=== PATIENT | male | born 1965 | race African-American/Black ===

== ENCOUNTER 2017-10-26 13:00 | Inpatient (IN) | payer OTHER ==
[2017-10-26 14:32] VITALS: BMI 31.3
--- NOTE | 2017-10-26 17:33 | HP ---
COWS - Scale Resting Pulse: 0= [place] 80 or Below Sweatin=Flushed/Facial Moisture Restless Observation: 3= Extraneous Movement Pupil Size: 2= Moderately Dilated Bone or Joint Aches: 2= Severe Diffuse Aches Runny Nose/ Eye Tearin= Runny Nose/Eyes GI Upset > 30mins: 3= Vomiting/Diarrhea Tremor Observation: 2= Slight Tremor Visible Yawning Observation: 1= 1-2x During Session Anxiety or Irritability: 2=Irritable/Anxious Goose Flesh Skin: 0=Smooth Skin COWS Score: 19 CIWA Score - CIWA Score Nausea/Vomitin Muscle Tremors: 3 Anxiety: 3 Agitation: 3 Paroxysmal Sweats: 1-Minimal Palms Moist Orientation: 0-Oriented Tacttile Disturbances: 1-Very Mild Itch/Numbness Auditory Disturbances: 1-Very Mild Visual Disturbances: 2-Mild Sensitivity Headache: 2-Mild CIWA-Ar Total Score: 19 Admission ROS BHS - HPI Chief Complaint: i need help to stop using heroin and xanax Allergies/Adverse Reactions: Allergies Allergy/AdvReac Type Severity Reaction Status Date / Time No Known Drug Allergies Allergy Verified 10/26/17 17:57 red sauce Allergy Uncoded 10/26/17 17:35 History of Present Illness: this 52 years old male with heroin and xanax dependence,sseking detox, withdrawal symptom,last detox 2010 type 2 dm hepatitis c nicotine dependence bipolar disorder longest period of sobriety 5 years - Ebola screening Have you traveled outside of the country in the last 21 days: No (N) Have you had contact with anyone from an Ebola affected area: No Have you been sick,other than usual withdrawal symptoms: No Do you have a fever: No - Review of Systems Constitutional: Chills, Diaphoresis, Loss of Appetite, Malaise, Night Sweats, Changes in sleep, Weakness EENT: reports: Tearing, Nose Congestion Respiratory: reports: No Symptoms reported Cardiac: reports: Palpitations GI: reports: Diarrhea, Nausea, Vomiting, Abdominal cramping Musculoskeletal: reports: Back Pain, Joint Pain, Muscle Pain, Joint Stiffness Integumentary: reports: Dryness Neuro: reports: Headache, Tremors Endocrine: reports: No Symptoms Reported, Other (type 2 dm) Hematology: reports: No Symptoms Reported Psychiatric: reports: No Sypmtoms Reported, Judgement Intact, Mood/Affect Appropiate, Orientated x3, other (bipolar disorder) Patient History - Patient Medical History Hx Anemia: No Hx Asthma: No Hx Chronic Obstructive Pulmonary Disease (COPD): No Hx Cancer: No Hx Cardiac Disorders: No Hx Congestive Heart Failure: No Hx Hypertension: No Hx Hypercholesterolemia: No Hx Pacemaker: No HX Cerebrovascular Accident: No Hx Seizures: No Hx Diabetes: Yes (on metformin 500 mgs po bid) Hx Gastrointestinal Disorders: No Hx Liver Disease: No Hx Genitourinary Disorders: No Hx Sexually Transmitted Disorders: No Hx Renal Disease (ESRD): No Hx Thyroid Disease: No Hx Human Immunodeficiency Virus (HIV): No (last 10/02 negative) Hx Hepatitis C: Yes Hx Depression: Yes Hx Suicide Attempt: Yes (cutter at age of 20 years) Hx Bipolar Disorder: Yes Hx Schizophrenia: No Other Medical History: no suicidal,no homicidal - Patient Surgical History Past Surgical History: No - PPD History Previous Implant?: No Documented Results: Negative w/o proof Implanted On Prior [facility] Admission?: No PPD to be Administered?: Yes - Smoking Cessation Smoking history: Current every day smoker Aproximately how many cigarettes per day: 6 Cigars Per Day: 0 Hx Chewing Tobacco Use: No Initiated information on smoking cessation: Yes 'Breaking Loose' booklet given: 10/26/17 - Substance & Tx. History Hx Alcohol Use: No Hx Substance Use: Yes Substance Use Type: Heroin, Tranquilizers Hx Substance Use Treatment: Yes ([address] [place] [id number]) - Substances Abused Heroin Route: SNIFF Frequency: Daily Amount used: 7-8 BAGS Age of first use: 23 Date of Last Use: 10/25/17 Alprazolam (Xanax) Route: Oral Frequency: Daily Amount used: 3/2MG Age of first use: 37 Date of Last Use: 10/26/17 Family Disease History - Family Disease History Family History: Denies Admission Physical Exam S - Vital Signs Vital Signs: Vital Signs - 24 hr 10/26/17 14:28 Temperature 98.1 F Pulse Rate 79 Respiratory 19 Rate Blood Pressure 136/98 - Physical General Appearance: Yes: Moderate Distress, Tremorous, Irritable, Sweating HEENTM: Yes: Normal ENT Inspection, EMELY, Pharynx Normal, Other (abrsion of forehead old) Respiratory: Yes: Lungs Clear, Normal Breath Sounds, No Respiratory Distress Neck: Yes: Within Normal Limits, Supple, Trachea in good position Breast: Yes: Within Normal Limits Cardiology: Yes: Within Normal Limits, Regular Rhythm, Regular Rate, S1, S2 Abdominal: Yes: Within Normal Limits, Normal Bowel Sounds, Non Tender, Flat, Soft Genitourinary: Yes: Within Normal Limits Back: Yes: Normal Inspection, Muscle Spasm Musculoskeletal: Yes: full range of Motion, Back pain, Joint Stiffness, Muscle Pain Extremities: Yes: Within Normal Limits, Normal Range of Motion, Tremors Neurological: Yes: automation control technician II-XII NML intact, Alert, Motor Strength 5/5, Normal Mood /Affect Integumentary: Yes: Within Normal Limits Lymphatic: Yes: Within Normal Limits - Diagnostic (1) Opioid dependence with withdrawal Current Visit: Yes Status: Acute (2) Uncomplicated sedative, hypnotic or anxiolytic withdrawal Current Visit: Yes Status: Acute (3) DM2 (diabetes mellitus, type 2) Current Visit: Yes Status: Acute (4) Hepatitis C Current Visit: Yes Status: Acute (5) Nicotine dependence Current Visit: Yes Status: Acute (6) Bipolar disorder Current Visit: Yes Status: Acute Cleared for Admission [facility] - Detox or Rehab [facility] Level of Care: Medically Managed Detox Regimen/Protocol: Methadone/Valium [facility] Breath Alcohol Content Breath Alcohol Content: 0 Urine Drug Screen - Results Drug Screen Negative: No Urine Drug Screen Results: DORI-Cocaine, OPI-Opiates, BZO-Benzodiazepines, MTD- Methadone
[2017-10-26] MEDS ORDERED: MAG HYDROX/AL HYDROX/SIMETH 30 ML UNIT-DOSE CUP PO PRN (17:51)
[2017-10-26] MEDS ORDERED: diazePAM 5 MG TABLET PO ONE (17:51)
[2017-10-26] MEDS ORDERED: MAGNESIUM CITRATE 300 ML BOTTLE PO PRN (17:51)
[2017-10-26] MEDS ORDERED: guaiFENesin/D-METHORPHAN HB 10 ML UNIT-DOSE CUPS PO PRN (17:51)
[2017-10-26] MEDS ORDERED: IBUPROFEN 400 MG TABLET (FP) PO PRN (17:51)
[2017-10-26] MEDS ORDERED: ACETAMINOPHEN 325 MG TABLET (FP) PO PRN (17:51)
[2017-10-26] MEDS ORDERED: P-EPHED 60MG/TRIPROLIDI 2.5MG TABLET PO PRN (17:51)
[2017-10-26] MEDS ORDERED: MAGNESIUM HYDROX 2400MG/30ML ORAL SUSPENSION 30 ML CUP PO PRN (17:51)
[2017-10-26] MEDS ORDERED: MENTHOL/PHENOL 1 EACH UD MM PRN (17:51)
[2017-10-26] MEDS ORDERED: METHADONE HCL 10 MG TABLET (FOR DETOX USE ONLY) PO ONE ×2 (17:51→23:00)
[2017-10-26] MEDS ORDERED: hydrOXYzine PAMOATE 25 MG CAPSULE (FP) PO PRN (17:51)
[2017-10-26] MEDS: NICOTINE 21 MG/24 HOURS TOPICAL PATCH TD SCH (20:01)
[2017-10-26] MEDS ORDERED: MELATONIN 5 MG TABLETS PO PRN (22:00)
[2017-10-26] MEDS: diazePAM 5 MG TABLET PO SCH (22:48)
[2017-10-26] MEDS: THIAMINE HCL 100 MG TABLET (FP) PO SCH (22:48)
[2017-10-27] MEDS: diazePAM 5 MG TABLET PO SCH ×3 (05:41→22:47)
[2017-10-27] MEDS: metFORMIN HCL 500 MG TABLET (FP) PO SCH ×2 (08:18→17:30)
[2017-10-27] MEDS ORDERED: METHADONE HCL 10 MG TABLET (FOR DETOX USE ONLY) PO SCH (10:00)
[2017-10-27 10:18] LABS: HEMATOCRIT 38.5 % (35.4-49); HEMOGLOBIN 13.2 GM/dL (11.7-16.9); MCH 32.2 pg (25.7-33.7); MCHC 34.3 g/dl (32.0-35.9); MEAN PLT VOLUME 7.3 fl (7.5-11.1); PLATELET COUNT 234 K/MM3 (134-434); RBC 4.09 M/mm3 (4.00-5.60); RDW 14.3 % (11.9-15.9)
[2017-10-27] MEDS: PRENATAL VITAMINS W/ FOLIC ACID TABLET (FP) PO SCH (10:19)
[2017-10-27] MEDS: NICOTINE 21 MG/24 HOURS TOPICAL PATCH TD SCH (10:20)
[2017-10-27 10:22] LABS: ALBUMIN 3.1 g/dl (3.4-5.0); ANION GAP 5 (8-16); BLOOD UREA NITROGEN 8 mg/dL (7-18); CALCIUM 7.9 mg/dL (8.5-10.1); CHLORIDE 105 mmol/L (98-107); CO2 29 mmol/L (21-32); POTASSIUM 3.8 mmol/L (3.5-5.1); SGOT/AST 19 U/L (15-37); SGPT/ALT 34 U/L (12-78); SODIUM 139 mmol/L (136-145)
[2017-10-27 10:24] LABS: ALK PHOS 91 U/L (45-117); BILIRUBIN,TOTAL 0.2 mg/dL (0.2-1.0); CREATININE 0.9 mg/dL (0.7-1.3); GLUCOSE,RANDOM 88 mg/dL (74-106); TOT PROT 6.7 g/dl (6.4-8.2)
[2017-10-27 13:08] LABS: URINE APPEARANCE CLEAR; URINE COLOR AMBER; URINE GLUCOSE (UA) NEGATIVE (NEGATIVE); URINE KETONE NEGATIVE (NEGATIVE); URINE LEUK ESTERASE NEGATIVE (NEGATIVE); URINE NITRITE NEGATIVE (NEGATIVE); URINE PROTEIN NEGATIVE (NEGATIVE); URINE UROBILINOGEN 4.0 E.U/dl mg/dL (0.2-1.0)
--- NOTE | 2017-10-27 13:27 | EKG ---
Test Reason : Blood Pressure : / mmHG Vent. Rate : 078 BPM Atrial Rate : 078 BPM P-R Int : 150 ms QRS Dur : 082 ms QT Int : 394 ms P-R-T Axes : 045 061 049 degrees QTc Int : 449 ms NORMAL SINUS RHYTHM NORMAL ECG NO PREVIOUS ECGS AVAILABLE Confirmed by SANTOSH GRIER, PETEY ([id number]) on 10/27/2017 1:26:54 PM Referred By: Confirmed By:PETEY FROST MD
--- NOTE | 2017-10-27 15:23 | PN ---
[facility] CIWA - CIWA Score Nausea/Vomitin Muscle Tremors: 3 Anxiety: 3 Agitation: 3 Paroxysmal Sweats: 3 Orientation: 0-Oriented Tacttile Disturbances: 1-Very Mild Itch/Numbness Auditory Disturbances: 0-None Visual Disturbances: 0-None Headache: 1-Very Mild CIWA-Ar Total Score: 17 [facility] Progress Note (SOAP) Subjective: Tremor, chills, sweating, interrupted sleep Objective: 10/27/17 15:21 Last Vital Signs Temp Pulse Resp BP Pulse Ox 97.9 F 73 16 133/70 10/27/17 14:04 10/27/17 14:04 10/27/17 14:04 10/27/17 14:04 Laboratory Tests 10/27/17 10/27/17 10/27/17 05:40 08:00 08:00 WBC 4.0 RBC 4.09 Hgb 13.2 Hct 38.5 MCV 94.0 MCH 32.2 MCHC 34.3 RDW 14.3 Plt Count 234 MPV 7.3 L Sodium 139 Potassium 3.8 Chloride 105 Carbon Dioxide 29 Anion Gap 5 L BUN 8 Creatinine 0.9 Creat Clearance w eGFR > 60 POC Glucometer 94 Random Glucose 88 Calcium 7.9 L Total Bilirubin 0.2 AST 19 ALT 34 Alkaline Phosphatase 91 Total Protein 6.7 Albumin 3.1 L Urine Color Urine Appearance Urine pH Ur Specific [place] Urine Protein Urine Glucose (UA) Urine Ketones Urine Blood Urine Nitrite Urine Bilirubin Urine Urobilinogen Ur Leukocyte Esterase RPR Titer 10/27/17 10/27/17 08:00 10:34 WBC RBC Hgb Hct MCV MCH MCHC RDW Plt Count MPV Sodium Potassium Chloride Carbon Dioxide Anion Gap BUN Creatinine Creat Clearance w eGFR POC Glucometer Random Glucose Calcium Total Bilirubin AST ALT Alkaline Phosphatase Total Protein Albumin Urine Color Vaishali Urine Appearance Clear Urine pH 5.0 Ur Specific [place] 1.031 Urine Protein Negative Urine Glucose (UA) Negative Urine Ketones Negative Urine Blood Negative Urine Nitrite Negative Urine Bilirubin 4.0 Urine Urobilinogen 4.0 e.u/dl Ur Leukocyte Esterase Negative RPR Titer Nonreactive Labs reviewed Assessment: 10/27/17 15:22 Withdrawal symptoms Plan: Continue detox Encouraged PO hydration (water)
--- NOTE | 2017-10-27 17:06 | CONSULT ---
[facility] Psychiatric Consult - Data Date of interview: 10/27/17 Admission source: Self-referred Identifying data: Patient is a 52 y/o male single, unemployed, homeless, father of 3 on SSI Substance Abuse History: Patient is here for Heroin, benzodiazepines and nicotine. Please refer to addiction counselor note for more relevant detailed drug history Medical History: Type 2 DM on Metformin. and Hep C. Patient reported a history of blood clots and a consequence he was placed on dialysis due to kidney disease but recovered Psychiatric History: Patient rproted one prior inpatient psychiatric hospitalization over 2 decades ago. He is diagnosed with Bipolar depressiion and medicated with 300 mg po daily and trazodone 50 mg po q hs. He attends a [facility] mental health center in [place] and reports compliance with his medication treatment Physical/Sexual Abuse/Trauma History: Patient denies history of abuse or trauma Mental Status Exam - Mental Status Exam Alert and Oriented to: Place, Person Cognitive Function: Good Patient Appearance: Unkempt Mood: Angry, Depressed Affect: Appropriate Patient Behavior: Cooperative Speech Pattern: Clear Voice Loudness: Normal Thought Process: Intact Thought Disorder: Not Present Hallucinations: None Suicidal Ideation: None Homicidal Ideation: None Insight/Judgement: Poor Sleep: Poorly Appetite: Fair Muscle strength/Tone: Normal Gait/Station: Normal Psychiatric Findings - Problem List ([place] 1, 2,3) (1) Opioid dependence with withdrawal Current Visit: Yes Status: Acute (2) Bipolar disorder Current Visit: Yes Status: Chronic (3) Hepatitis C Current Visit: Yes Status: Chronic (4) Nicotine dependence Current Visit: Yes Status: Chronic - Initial Treatment Plan Initial Treatment Plan: Continue in patient Detox treatment. Seroquel 300 mg po daily
[2017-10-27] MEDS: THIAMINE HCL 100 MG TABLET (FP) PO SCH (22:47)
[2017-10-27] MEDS: QUEtiapine FUMARATE 300 MG TABLET PO SCH (22:47)
[2017-10-27] MEDS: traZODone HCL 50 MG TABLET (FP) PO SCH (22:47)
[2017-10-28] MEDS: metFORMIN HCL 500 MG TABLET (FP) PO SCH ×2 (06:30→17:24)
[2017-10-28] MEDS: METHADONE HCL 5 MG TABLET (FOR DETOX USE ONLY) PO SCH (11:05)
[2017-10-28] MEDS: NICOTINE 21 MG/24 HOURS TOPICAL PATCH TD SCH (11:05)
[2017-10-28] MEDS: PRENATAL VITAMINS W/ FOLIC ACID TABLET (FP) PO SCH (11:05)
[2017-10-28] MEDS: diazePAM 5 MG TABLET PO SCH ×2 (11:05→22:15)
[2017-10-28] MEDS: LOPERAMIDE HCL 2 MG CAPSULE PO PRN (11:07)
--- NOTE | 2017-10-28 13:21 | PN ---
[facility] COWS - Scale Resting Pulse: 0= [place] 80 or Below Sweatin= Chills/Flushing Restless Observation: 3= Extraneous Movement Pupil Size: 1= Pupils >than Normal Bone or Joint Aches: 2= Severe Diffuse Aches Runny Nose/ Eye Tearin= Runny Nose/Eyes GI Upset > 30mins: 2= Nausea/Diarrhea Tremor Observation of Outstretched Hands: 2= Slight Tremor Visible Yawning Observation: 1= 1-2x During Session Anxiety or Irritability: 2=Irritable/Anxious Goose Flesh Skin: 0=Smooth Skin COWS Score: 16 BHS Progress Note (SOAP) Subjective: ALERT,IRRITABLE,ANXIOUS,INTERRUPTED SLEEP,TREMOR,PAIN IN THE BODY AND BACK Objective: 10/28/17 13:20 Vital Signs Temperature 98.4 F 10/28/17 10:00 Pulse Rate 72 10/28/17 10:00 Respiratory Rate 18 10/28/17 10:00 Blood Pressure 126/80 10/28/17 10:00 O2 Sat by Pulse Oximetry (%) Vital Signs Temperature 98.4 F 10/28/17 10:00 Pulse Rate 72 10/28/17 10:00 Respiratory Rate 18 10/28/17 10:00 Blood Pressure 126/80 10/28/17 10:00 O2 Sat by Pulse Oximetry (%) Laboratory Last Values WBC 4.0 K/mm3 (4.0-10.0) 10/27/17 08:00 RBC 4.09 M/mm3 (4.00-5.60) 10/27/17 08:00 Hgb 13.2 GM/dL (11.7-16.9) 10/27/17 08:00 Hct 38.5 % (35.4-49) 10/27/17 08:00 MCV 94.0 fl (80-96) 10/27/17 08:00 MCH 32.2 pg (25.7-33.7) 10/27/17 08:00 MCHC 34.3 g/dl (32.0-35.9) 10/27/17 08:00 RDW 14.3 % (11.9-15.9) 10/27/17 08:00 Plt Count 234 K/MM3 (134-434) 10/27/17 08:00 MPV 7.3 fl (7.5-11.1) L 10/27/17 08:00 Sodium 139 mmol/L (136-145) 10/27/17 08:00 Potassium 3.8 mmol/L (3.5-5.1) 10/27/17 08:00 Chloride 105 mmol/L (98-107) 10/27/17 08:00 Carbon Dioxide 29 mmol/L (21-32) 10/27/17 08:00 Anion Gap 5 (8-16) L 10/27/17 08:00 BUN 8 mg/dL (7-18) 10/27/17 08:00 Creatinine 0.9 mg/dL (0.7-1.3) 10/27/17 08:00 Creat Clearance w eGFR > 60 (>60) 10/27/17 08:00 POC Glucometer 101 UNITS (80-120) 10/28/17 05:42 Random Glucose 88 mg/dL (74-106) 10/27/17 08:00 Calcium 7.9 mg/dL (8.5-10.1) L 10/27/17 08:00 Total Bilirubin 0.2 mg/dL (0.2-1.0) 10/27/17 08:00 AST 19 U/L (15-37) 10/27/17 08:00 ALT 34 U/L (12-78) 10/27/17 08:00 Alkaline Phosphatase 91 U/L (45-117) 10/27/17 08:00 Total Protein 6.7 g/dl (6.4-8.2) 10/27/17 08:00 Albumin 3.1 g/dl (3.4-5.0) L 10/27/17 08:00 Urine Color Vaishali 10/27/17 10:34 Urine Appearance Clear 10/27/17 10:34 Urine pH 5.0 (5.0-8.0) 10/27/17 10:34 Ur Specific [place] 1.031 (1.001-1.035) 10/27/17 10:34 Urine Protein Negative (NEGATIVE) 10/27/17 10:34 Urine Glucose (UA) Negative (NEGATIVE) 10/27/17 10:34 Urine Ketones Negative (NEGATIVE) 10/27/17 10:34 Urine Blood Negative (NEGATIVE) 10/27/17 10:34 Urine Nitrite Negative (NEGATIVE) 10/27/17 10:34 Urine Bilirubin 4.0 (<2.0 mg/dL) 10/27/17 10:34 Urine Urobilinogen 4.0 e.u/dl mg/dL (0.2-1.0) 10/27/17 10:34 Ur Leukocyte Esterase Negative (NEGATIVE) 10/27/17 10:34 RPR Titer Nonreactive (NONREACTIVE) 10/27/17 08:00 Assessment: 10/28/17 13:21 WITHDRAWAL SYMPTOM Plan: CONTINUE DETOX
[2017-10-28] MEDS: diazePAM 5 MG TABLET PO PRN (17:24)
[2017-10-28] MEDS: traZODone HCL 50 MG TABLET (FP) PO SCH (22:15)
[2017-10-28] MEDS: QUEtiapine FUMARATE 300 MG TABLET PO SCH (22:15)
[2017-10-28] MEDS: THIAMINE HCL 100 MG TABLET (FP) PO SCH (22:16)
[2017-10-29] MEDS: metFORMIN HCL 500 MG TABLET (FP) PO SCH ×2 (10:29→17:38)
[2017-10-29] MEDS: PRENATAL VITAMINS W/ FOLIC ACID TABLET (FP) PO SCH (10:30)
[2017-10-29] MEDS: METHADONE HCL 5 MG TABLET (FOR DETOX USE ONLY) PO SCH (10:30)
[2017-10-29] MEDS: diazePAM 5 MG TABLET PO SCH ×2 (10:30→22:21)
[2017-10-29] MEDS: NICOTINE 21 MG/24 HOURS TOPICAL PATCH TD SCH (10:31)
--- NOTE | 2017-10-29 10:52 | PN ---
S Progress Note (SOAP) Subjective: ALERT,IRRITABLE,PAIN IN THE BODY,INTERRUPTED SLEEP Objective: 10/29/17 10:50 Vital Signs Temperature 98.1 F 10/29/17 08:49 Pulse Rate 76 10/29/17 08:49 Respiratory Rate 18 10/29/17 08:49 Blood Pressure 128/78 10/29/17 08:49 O2 Sat by Pulse Oximetry (%) Assessment: 10/29/17 10:51 WITHDRAWAL SYMPTOM Plan: CONTINUE DETOX,BGM IS 92
--- NOTE | 2017-10-29 12:01 | EKG ---
Test Reason : Blood Pressure : / mmHG Vent. Rate : 107 BPM Atrial Rate : 107 BPM P-R Int : 144 ms QRS Dur : 084 ms QT Int : 366 ms P-R-T Axes : 062 -20 036 degrees QTc Int : 488 ms SINUS TACHYCARDIA OTHERWISE NORMAL ECG Confirmed by MD ELFEGO, LISA ([id number]) on 10/29/2017 12:01:37 PM Referred By: Confirmed By:LISA TELLES MD
[2017-10-29] MEDS: diazePAM 5 MG TABLET PO PRN ×2 (12:55→17:40)
[2017-10-29] MEDS: LOPERAMIDE HCL 2 MG CAPSULE PO PRN (17:40)
[2017-10-29] MEDS: traZODone HCL 50 MG TABLET (FP) PO SCH (22:20)
[2017-10-29] MEDS: QUEtiapine FUMARATE 300 MG TABLET PO SCH (22:20)
[2017-10-29] MEDS: THIAMINE HCL 100 MG TABLET (FP) PO SCH (22:23)
[2017-10-30] MEDS ORDERED: METHADONE HCL 10 MG TABLET (FOR DETOX USE ONLY) PO SCH (10:00)
[2017-10-30] MEDS ORDERED: diazePAM 5 MG TABLET PO SCH (10:00)
[2017-10-30] MEDS: NICOTINE 21 MG/24 HOURS TOPICAL PATCH TD SCH (10:54)
[2017-10-30] MEDS: metFORMIN HCL 500 MG TABLET (FP) PO SCH ×2 (10:54→17:44)
[2017-10-30] MEDS: PRENATAL VITAMINS W/ FOLIC ACID TABLET (FP) PO SCH (10:54)
--- NOTE | 2017-10-30 12:30 | PN ---
BHS Progress Note (SOAP) Subjective: ALERT,IRRITABLE,ANXIOUS,INTERRUPTED SLEEP Objective: 10/30/17 12:29 Vital Signs Temperature 98.1 F 10/30/17 10:16 Pulse Rate 80 10/30/17 10:16 Respiratory Rate 20 10/30/17 10:16 Blood Pressure 124/70 10/30/17 10:16 O2 Sat by Pulse Oximetry (%) Assessment: 10/30/17 12:29 WITHDRAWAL SYMPTOM Plan: CONTINUE DETOX
[2017-10-30] MEDS: THIAMINE HCL 100 MG TABLET (FP) PO SCH (22:15)
[2017-10-30] MEDS: QUEtiapine FUMARATE 300 MG TABLET PO SCH (22:15)
[2017-10-30] MEDS: traZODone HCL 50 MG TABLET (FP) PO SCH (22:15)
[2017-10-31] MEDS ORDERED: METHADONE HCL 5 MG TABLET (FOR DETOX USE ONLY) PO SCH (06:00)
[2017-10-31] MEDS: metFORMIN HCL 500 MG TABLET (FP) PO SCH ×2 (10:25→17:35)
[2017-10-31] MEDS: PRENATAL VITAMINS W/ FOLIC ACID TABLET (FP) PO SCH (10:26)
[2017-10-31] MEDS: NICOTINE 21 MG/24 HOURS TOPICAL PATCH TD SCH (10:26)
--- NOTE | 2017-10-31 12:47 | PN ---
S Progress Note (SOAP) Subjective: ALERT,IRRITABLE,INTERRUPTED SLEEP Objective: 10/31/17 12:46 Vital Signs Temperature 97.3 F L 10/31/17 10:15 Pulse Rate 87 10/31/17 10:15 Respiratory Rate 18 10/31/17 10:15 Blood Pressure 137/82 10/31/17 10:15 O2 Sat by Pulse Oximetry (%) Assessment: 10/31/17 12:46 WITHDRAWAL SYMPTOM Plan: CONTINUE DETOX,DISCHARGE IN AM
[2017-10-31] MEDS: QUEtiapine FUMARATE 300 MG TABLET PO SCH (22:11)
[2017-10-31] MEDS: THIAMINE HCL 100 MG TABLET (FP) PO SCH (22:11)
[2017-10-31] MEDS: traZODone HCL 50 MG TABLET (FP) PO SCH (22:11)
--- NOTE | 2017-11-01 08:35 | PN ---
BHS Progress Note (SOAP) Subjective: ALERT,NO COMPLAINT Objective: 11/01/17 08:34 Vital Signs Temperature 98 F 11/01/17 05:55 Pulse Rate 76 11/01/17 05:55 Respiratory Rate 18 11/01/17 05:55 Blood Pressure 111/70 11/01/17 05:55 O2 Sat by Pulse Oximetry (%) Assessment: 11/01/17 08:34 DETOX COMPLETED,NO WITHDRAWAL SYMPTOM Plan: DISCHARGE TODAY,FOLLOW UP WITH AFTER CARE PROGRAM ARRANGEMENT
--- NOTE | 2017-11-01 08:40 | DS ---
[facility] Detox Discharge Summary Admission Date: 10/26/17 Discharge Date: 11/01/17 - History Present History: Opioid Dependence Additional Comments: FOLLOW UP WITH AFTER CARE PROGRAM ARRANGEMENT Pertinent Past History: TYPE 2 DM HEPATITIS C NICOTINE DEPENDENCE BIPOLAR DISORDER - Physical Exam Results Vital Signs: Vital Signs Temperature 98 F 11/01/17 05:55 Pulse Rate 76 11/01/17 05:55 Respiratory Rate 18 11/01/17 05:55 Blood Pressure 111/70 11/01/17 05:55 O2 Sat by Pulse Oximetry (%) Pertinent Admission Physical Exam Findings: WITHDRAWAL SIGNS AND SYMPTOM Vital Signs Temperature 98 F 11/01/17 05:55 Pulse Rate 76 11/01/17 05:55 Respiratory Rate 18 11/01/17 05:55 Blood Pressure 111/70 11/01/17 05:55 O2 Sat by Pulse Oximetry (%) Laboratory Last Values WBC 4.0 K/mm3 (4.0-10.0) 10/27/17 08:00 RBC 4.09 M/mm3 (4.00-5.60) 10/27/17 08:00 Hgb 13.2 GM/dL (11.7-16.9) 10/27/17 08:00 Hct 38.5 % (35.4-49) 10/27/17 08:00 MCV 94.0 fl (80-96) 10/27/17 08:00 MCH 32.2 pg (25.7-33.7) 10/27/17 08:00 MCHC 34.3 g/dl (32.0-35.9) 10/27/17 08:00 RDW 14.3 % (11.9-15.9) 10/27/17 08:00 Plt Count 234 K/MM3 (134-434) 10/27/17 08:00 MPV 7.3 fl (7.5-11.1) L 10/27/17 08:00 Sodium 139 mmol/L (136-145) 10/27/17 08:00 Potassium 3.8 mmol/L (3.5-5.1) 10/27/17 08:00 Chloride 105 mmol/L (98-107) 10/27/17 08:00 Carbon Dioxide 29 mmol/L (21-32) 10/27/17 08:00 Anion Gap 5 (8-16) L 10/27/17 08:00 BUN 8 mg/dL (7-18) 10/27/17 08:00 Creatinine 0.9 mg/dL (0.7-1.3) 10/27/17 08:00 Creat Clearance w eGFR > 60 (>60) 10/27/17 08:00 POC Glucometer 93 UNITS (80-120) 11/01/17 06:11 Random Glucose 88 mg/dL (74-106) 10/27/17 08:00 Calcium 7.9 mg/dL (8.5-10.1) L 10/27/17 08:00 Total Bilirubin 0.2 mg/dL (0.2-1.0) 10/27/17 08:00 AST 19 U/L (15-37) 10/27/17 08:00 ALT 34 U/L (12-78) 10/27/17 08:00 Alkaline Phosphatase 91 U/L (45-117) 10/27/17 08:00 Total Protein 6.7 g/dl (6.4-8.2) 10/27/17 08:00 Albumin 3.1 g/dl (3.4-5.0) L 10/27/17 08:00 Urine Color Vaishali 10/27/17 10:34 Urine Appearance Clear 10/27/17 10:34 Urine pH 5.0 (5.0-8.0) 10/27/17 10:34 Ur Specific [place] 1.031 (1.001-1.035) 10/27/17 10:34 Urine Protein Negative (NEGATIVE) 10/27/17 10:34 Urine Glucose (UA) Negative (NEGATIVE) 10/27/17 10:34 Urine Ketones Negative (NEGATIVE) 10/27/17 10:34 Urine Blood Negative (NEGATIVE) 10/27/17 10:34 Urine Nitrite Negative (NEGATIVE) 10/27/17 10:34 Urine Bilirubin 4.0 (<2.0 mg/dL) 10/27/17 10:34 Urine Urobilinogen 4.0 e.u/dl mg/dL (0.2-1.0) 10/27/17 10:34 Ur Leukocyte Esterase Negative (NEGATIVE) 10/27/17 10:34 RPR Titer Nonreactive (NONREACTIVE) 10/27/17 08:00 - Treatment Hospital Course: Detox Protocol Followed, Detoxed Safely, Responded well, Discharged Condition Good Patient has Accepted a Rehab Referral to: DECLINED - Medication Discharge Medications: Ambulatory Orders Quetiapine Fumarate [Seroquel] 300 mg PO HS 10/26/17 Trazodone HCl 50 mg PO HS 10/26/17 - Diagnosis (1) Opioid dependence with withdrawal Current Visit: Yes Status: Acute (2) Uncomplicated sedative, hypnotic or anxiolytic withdrawal Current Visit: Yes Status: Acute (3) DM2 (diabetes mellitus, type 2) Current Visit: Yes Status: Chronic (4) Hepatitis C Current Visit: Yes Status: Chronic (5) Nicotine dependence Current Visit: Yes Status: Chronic (6) Bipolar disorder Current Visit: Yes Status: Chronic - AMA Did Patient Leave Against Medical Advice: No
[2017-11-01 09:49] VITALS: BP 138/88; PULSE 80; TEMP 97.9
[2017-11-01] MEDS: PRENATAL VITAMINS W/ FOLIC ACID TABLET (FP) PO SCH (10:12)
[2017-11-01] MEDS: NICOTINE 21 MG/24 HOURS TOPICAL PATCH TD SCH (10:12)
== END 2017-11-01 10:35 | disposition home or self-care (01) | DRG 897 ==
LOC: YASAS 13:00 → Y6N 17:37
PROVIDERS: ADMIT Internal Medicine; ATTEND Internal Medicine
PROC: HZ2ZZZZ Detoxification Services for Substance Abuse Treatment (ICD-10-PCS; principal; 2017-10-26)
DX: F11.23 Opioid dependence with withdrawal (principal); F13.230 Sedative, hypnotic or anxiolytic dependence with withdrawal, uncomplicated; F17.210 Nicotine dependence, cigarettes, uncomplicated; F31.9 Bipolar disorder, unspecified; B18.2 Chronic viral hepatitis C; E11.9 Type 2 diabetes mellitus without complications; Z79.84 Long term (current) use of oral hypoglycemic drugs
CPT/HCPCS: 36415; 80053; 81003; 82962; 85027; 86593; 93005; 93010